=== PATIENT | male | born 1955 | race Caucasian/White ===

== ENCOUNTER 2016-04-15 16:48 | Inpatient (IN) | payer BC, OTHER ==
[~2016-04-15] VITALS: Ht 185.4 cm; Wt 151.8 kg
[~2016-04-15 16:48] MED LIST: CARI-277 PO; CLOP75TA28 PO; GABA300C PO; SIMV40TA96 PO
[2016-04-15 17:53] LABS: Basophils # (auto) 0 uL; Basophils % (auto) 0.3 % (0.0-2.0); Eosinophils # (auto) 0.1 uL; Hematocrit 46.8 % (41.0-53.0); Hemoglobin 15.2 g/dL (13.5-17.5); Lymphocytes # (auto) 1.3 uL; Lymphocytes % (auto) 10.8 % (10.0-50.0); Mean Corpuscular Hemoglobin 30.1 pg (28.0-32.0); Mean Corpuscular Hgb Conc. 32.5 g/dL (32.0-36.0); Mean Corpuscular Volume 92.5 fL (80.0-100.0); Monocytes # (auto) 0.5 uL; Monocytes % (auto) 3.9 % (0.0-12.0); Platelet Count (auto) 255 10^3/uL (140-450); Red Cell Distribution Width 14.9 % (11.6-16.0); White Blood Cell 11.9 10^3/uL (4.4-10.8)
[2016-04-15 17:59] LABS: Albumin 3.7 g/dL (3.4-5.0); BUN/Creatinine Ratio 29.7; Bilirubin, Total 1.5 mg/dL (0.2-1.0); Calcium 8.6 mg/dL (8.5-10.1); Magnesium 2.4 mg/dL (1.6-2.6); Potassium 3.9 mmol/L (3.5-5.1); Total Protein 7.2 g/dL (6.4-8.2)
[2016-04-15 18:05] LABS: B-Type Natriuretic Peptide 32.12 pg/mL (0-100)
[2016-04-15 18:07] LABS: Temperature: 22.3 C (20.0-25.0)
[2016-04-15 18:37] LABS: Partial Thromboplastin Time 43.9 sec (22.64-33.71)
[2016-04-15 18:38] LABS: INR 3.51 (0.9-1.15); Prothrombin Time 36.2 sec (9.37-12.3)
[2016-04-15] MEDS ORDERED: OXYCODONE W/ ACETAMINOPHEN 5/325MG TABLET PO ONE ×2 (18:45→19:00)
[2016-04-15] MEDS ORDERED: ONDANSETRON HCL 4 MG/2 ML VIAL IV ONE (19:00)
[2016-04-15] MEDS ORDERED: PANTOPRAZOLE SODIUM 40 MG/10 ML VIAL IV ONE (19:00)
[2016-04-15] MEDS ORDERED: IOHEXOL 350 MG/ML 100ML IJ ONE (20:34)
[2016-04-15] MEDS ORDERED: SODIUM CHLORIDE 0.9% 500 ML IV ONE (22:45)
[2016-04-15] MEDS ORDERED: SODIUM CHLORIDE 0.9% 1,000 ML IV ONE (23:00)
[2016-04-15] MEDS ORDERED: SOD CHL 0.45% 1,000 ML IV SCH (23:45)
[2016-04-15] MEDS ORDERED: ONDANSETRON HCL 4 MG/2 ML VIAL IV PRN (23:45)
[2016-04-15] MEDS ORDERED: NITROGLYCERIN 0.4 MG SL TAB SL PRN (23:45)
[2016-04-16] MEDS ORDERED: oxyCODONE ER 10 MG TAB PO PRN (01:15)
[2016-04-16] MEDS ORDERED: SODIUM CHLORIDE 0.9% 1,000 ML IV ONE (01:30)
[2016-04-16] MEDS ORDERED: NOREPINEPHRINE BITARTRATE 250 ML IV ONE (02:14)
[2016-04-16] MEDS: NOREPINEPHRINE BITARTRATE 250 ML IV SCH (02:31)
[2016-04-16 04:12] LABS: Basophils # (auto) 0 uL; Basophils % (auto) 0.2 % (0.0-2.0); Eosinophils # (auto) 0 uL; Eosinophils % (auto) 0.1 % (0.0-7.0); Hematocrit 40.3 % (41.0-53.0); Hemoglobin 13.1 g/dL (13.5-17.5); Lymphocytes # (auto) 1.1 uL; Lymphocytes % (auto) 5.8 % (10.0-50.0); Mean Corpuscular Hemoglobin 29.9 pg (28.0-32.0); Mean Corpuscular Hgb Conc. 32.5 g/dL (32.0-36.0); Mean Corpuscular Volume 92.2 fL (80.0-100.0); Mean Platelet Volume 7.9 fL (7.4-10.4); Monocytes # (auto) 1.1 uL; Monocytes % (auto) 5.7 % (0.0-12.0); Neutrophils # (auto) 16.8 uL; Neutrophils % (auto) 88.2 % (37.0-80.0); Platelet Count (auto) 219 10^3/uL (140-450); Red Cell Distribution Width 14.8 % (11.6-16.0)
[2016-04-16 04:34] LABS: BUN/Creatinine Ratio 20.3; Bilirubin, Total 2.5 mg/dL (0.2-1.0); Calcium 7.7 mg/dL (8.5-10.1); Potassium 4.2 mmol/L (3.5-5.1); Total Protein 5.9 g/dL (6.4-8.2)
[2016-04-16 04:38] LABS: Urine Blood Negative /uL (Negative); Urine Glucose Normal (Normal); Urine Granular Cast FEW /lpf (0); Urine Ketone Negative (Negative); Urine Nitrite Negative (Negative); Urine RBC 2 /hpf (0 - 3); Urine Squamous Epithelial Cell FEW /hpf (<5); Urine Urobilinogen >12.0 mg/dL (Negative); Urine pH 5.5 (5.0-8.0)
[2016-04-16 04:53] LABS: Urine Bilirubin 1+ (Negative); Urine Color Amber (Yellow)
[2016-04-16] MEDS ORDERED: fentaNYL CITRATE 100 MCG/2 ML VL IV PRN (07:00)
[2016-04-16 07:01] LABS: REFLEX LACTIC ACID YES OR NO YES
[2016-04-16] MEDS: PIPERACILLIN-TAZOB 3.375GM 100 ML IV SCH ×3 (08:05→18:57)
[2016-04-16 09:44] LABS: Prothrombin Time 43.1 sec (9.37-12.3)
[2016-04-16 09:49] LABS: INR 4.18 (0.9-1.15)
[2016-04-16] MEDS ORDERED: CARISOPRODOL 350 MG TAB PO SCH (10:00)
[2016-04-16] MEDS ORDERED: CLOPIDOGREL BISULFATE 75 MG TAB PO SCH (10:00)
[2016-04-16] MEDS ORDERED: GABAPENTIN 300 MG CAP PO SCH (10:00)
[2016-04-16 10:12] LABS: REFLEX LACTIC ACID YES OR NO YES
[2016-04-16] MEDS ORDERED: SODIUM CHLORIDE 0.9% 2,000 ML IV ONE (16:15)
[2016-04-16 20:45] VITALS: BP 102/65
[2016-04-16 22:00] VITALS: BP 102/65
[2016-04-16] MEDS ORDERED: TEMA15CA PO (22:53)
[2016-04-16] MEDS ORDERED: CHLO25TA22 PO (22:53)
[2016-04-16] MEDS ORDERED: WARF10TA20 PO (22:53)
[2016-04-16] MEDS ORDERED: ALL300T PO (22:53)
[2016-04-16] MEDS ORDERED: PRAV20TA3 PO (22:53)
[2016-04-16] MEDS ORDERED: LISI40TA PO (22:53)
[2016-04-16] MEDS ORDERED: BACL10TA PO (22:53)
[2016-04-16] MEDS: SOD CHL 0.45% 1,000 ML IV SCH ×2 (23:26→23:45)
[2016-04-17] MEDS: MORPHINE SULF INJ 2 MG/ML SYRINGE 1ML IV PRN ×6 (00:05→21:42)
[2016-04-17] MEDS: PIPERACILLIN-TAZOB 3.375GM 100 ML IV SCH ×4 (01:22→17:01)
[2016-04-17] MEDS: NOREPINEPHRINE BITARTRATE 250 ML IV SCH (02:30)
[2016-04-17] MEDS: SOD CHL 0.45% 1,000 ML IV SCH ×6 (02:33→23:49)
[2016-04-17 05:30] VITALS: BP 101/52
[2016-04-17 06:47] LABS: Basophils # (auto) 0 uL; Basophils % (auto) 0.1 % (0.0-2.0); Eosinophils # (auto) 0.2 uL; Eosinophils % (auto) 2.2 % (0.0-7.0); Hematocrit 37.7 % (41.0-53.0); Hemoglobin 12.2 g/dL (13.5-17.5); Lymphocytes # (auto) 0.9 uL; Lymphocytes % (auto) 10.2 % (10.0-50.0); Mean Corpuscular Hemoglobin 29.8 pg (28.0-32.0); Mean Corpuscular Hgb Conc. 32.3 g/dL (32.0-36.0); Mean Corpuscular Volume 92.3 fL (80.0-100.0); Mean Platelet Volume 8.1 fL (7.4-10.4); Monocytes # (auto) 0.4 uL; Monocytes % (auto) 4.8 % (0.0-12.0); Neutrophils # (auto) 7.3 uL; Neutrophils % (auto) 82.7 % (37.0-80.0); Platelet Count (auto) 169 10^3/uL (140-450); Red Cell Distribution Width 15.2 % (11.6-16.0); White Blood Cell 8.8 10^3/uL (4.4-10.8)
[2016-04-17 07:02] LABS: Partial Thromboplastin Time 49.3 sec (22.64-33.71)
[2016-04-17 07:03] LABS: INR 3.34 (0.9-1.15); Prothrombin Time 34.4 sec (9.37-12.3)
[2016-04-17 07:13] LABS: Albumin 2.8 g/dL (3.4-5.0); BUN/Creatinine Ratio 24.2; Bilirubin, Total 2.1 mg/dL (0.2-1.0); Calcium 7.9 mg/dL (8.5-10.1); Potassium 3.8 mmol/L (3.5-5.1); Total Protein 5.8 g/dL (6.4-8.2)
[2016-04-17 08:25] VITALS: BP 93/54
[2016-04-17 11:46] VITALS: BP 121/66
[2016-04-17 17:11] VITALS: BP 118/65
[2016-04-17 22:00] VITALS: BP 129/87
[2016-04-18] MEDS: PIPERACILLIN-TAZOB 3.375GM 100 ML IV SCH ×3 (00:54→12:20)
[2016-04-18] MEDS: MORPHINE SULF INJ 2 MG/ML SYRINGE 1ML IV PRN ×2 (02:00→06:07)
[2016-04-18 05:30] VITALS: BP 149/82
[2016-04-18 06:18] LABS: Basophils # (auto) 0 uL; Basophils % (auto) 0.3 % (0.0-2.0); Eosinophils # (auto) 0.3 uL; Eosinophils % (auto) 4.2 % (0.0-7.0); Hematocrit 39.1 % (41.0-53.0); Hemoglobin 12.8 g/dL (13.5-17.5); Lymphocytes # (auto) 1.4 uL; Lymphocytes % (auto) 20.6 % (10.0-50.0); Mean Corpuscular Hemoglobin 30.1 pg (28.0-32.0); Mean Corpuscular Hgb Conc. 32.7 g/dL (32.0-36.0); Mean Corpuscular Volume 91.9 fL (80.0-100.0); Mean Platelet Volume 7.9 fL (7.4-10.4); Monocytes # (auto) 0.4 uL; Monocytes % (auto) 6.6 % (0.0-12.0); Neutrophils # (auto) 4.6 uL; Neutrophils % (auto) 68.3 % (37.0-80.0); Platelet Count (auto) 183 10^3/uL (140-450); Red Cell Distribution Width 14.7 % (11.6-16.0); White Blood Cell 6.8 10^3/uL (4.4-10.8)
[2016-04-18 06:37] LABS: Albumin 2.8 g/dL (3.4-5.0); BUN/Creatinine Ratio 14.4; Calcium 7.9 mg/dL (8.5-10.1)
[2016-04-18 06:39] LABS: Bilirubin, Total 1.1 mg/dL (0.2-1.0); Total Protein 6.3 g/dL (6.4-8.2)
[2016-04-18 06:40] LABS: Partial Thromboplastin Time 50.4 sec (22.64-33.71)
[2016-04-18 06:42] LABS: INR 2.88 (0.9-1.15); Prothrombin Time 29.7 sec (9.37-12.3)
[2016-04-18] MEDS: SOD CHL 0.45% 1,000 ML IV SCH (07:45)
[2016-04-18] MEDS ORDERED: BACLOFEN 10 MG TAB PO PRN (09:15)
[2016-04-18 09:27] VITALS: BP 131/82
[2016-04-18] MEDS ORDERED: fentaNYL 75MCG/HR 75 MCG/HR PAT TD SCH (09:30)
[2016-04-18] MEDS ORDERED: ALLOPURINOL 300 MG TAB PO SCH (10:00)
[2016-04-18] MEDS ORDERED: CHLORTHALIDONE 25 MG PO SCH (10:00)
[2016-04-18] MEDS ORDERED: PRAVASTATIN SODIUM 20 MG TAB PO SCH (10:00)
[2016-04-18] MEDS ORDERED: PATIENTS OWN MEDICATION TD ONE ×2 (10:00)
[2016-04-18] MEDS ORDERED: CITALOPRAM HYDROBR 20 MG TAB PO ONE (10:30)
[2016-04-18 12:38] VITALS: BP 137/88
[2016-04-18 16:35] VITALS: BP 113/79
[2016-04-18] MEDS ORDERED: WARFARIN SODIUM 2 MG TAB PO ONE (17:00)
[2016-04-18 17:20] VITALS: BP 113/79
[2016-04-18] MEDS ORDERED: TEMAZEPAM 15 MG CAP PO SCH (22:00)
== END 2016-04-18 17:20 | disposition home or self-care (01) | DRG 439 ==
LOC: EDUNIT# 16:48 → ER 16:54 → TELE 16:55 → TELE-WESTW 04-16 20:30
PROVIDERS: ADMIT Internal Medicine; ATTEND Internal Medicine
DX: K85.90 Acute pancreatitis without necrosis or infection, unspecified (principal); Z68.41 Body mass index [BMI] 40.0-44.9, adult; F11.20 Opioid dependence, uncomplicated; N17.9 Acute kidney failure, unspecified; G89.29 Other chronic pain; M54.9 Dorsalgia, unspecified; I95.9 Hypotension, unspecified; E66.01 Morbid (severe) obesity due to excess calories; M10.9 Gout, unspecified; E03.9 Hypothyroidism, unspecified; I10 Essential (primary) hypertension; K21.9 Gastro-esophageal reflux disease without esophagitis; R79.89 Other specified abnormal findings of blood chemistry; I48.2 Chronic atrial fibrillation; M16.0 Bilateral primary osteoarthritis of hip; E86.0 Dehydration; I25.10 Atherosclerotic heart disease of native coronary artery without angina pectoris; Z79.01 Long term (current) use of anticoagulants; I25.2 Old myocardial infarction; Z98.84 Bariatric surgery status; Z88.1 Allergy status to other antibiotic agents; Z88.8 Allergy status to other drugs, medicaments and biological substances; Z79.899 Other long term (current) drug therapy; Z90.49 Acquired absence of other specified parts of digestive tract; Z80.0 Family history of malignant neoplasm of digestive organs
CPT/HCPCS: 36415; 36600; 71010; 71260; 74177; 76705; 80053; 80061; 80074; 81001; 82805; 83605; 83690; 83735; 83880; 84478; 84484; 85025; 85379; 85610; 85730; 86038; 86141; 87040; 93005; 94761; 96361; 96374; C9113; J2405; J2543; J3490

== ENCOUNTER 2016-09-17 04:10 | Emergency (ER) | payer BC ==
[~2016-09-17] VITALS: Ht 185.4 cm; Wt 145.1 kg
[~2016-09-17 04:10] MED LIST changes: +ALL300T PO; +BACL10TA PO; +CHLO25TA22 PO; +LISI40TA PO; +PRAV20TA3 PO; +TEMA15CA PO; +WARF10TA20 PO
[2016-09-17 04:37] LABS: Basophils # (auto) 0 uL; Basophils % (auto) 0.7 % (0.0-2.0); Eosinophils # (auto) 0.2 uL; Eosinophils % (auto) 3.5 % (0.0-7.0); Hemoglobin 13.6 g/dL (13.5-17.5); Lymphocytes # (auto) 2.3 uL; Lymphocytes % (auto) 34.2 % (10.0-50.0); Mean Corpuscular Hgb Conc. 33.3 g/dL (32.0-36.0); Mean Corpuscular Volume 93.1 fL (80.0-100.0); Mean Platelet Volume 7.3 fL (7.4-10.4); Monocytes # (auto) 0.4 uL; Monocytes % (auto) 6.5 % (0.0-12.0); Neutrophils # (auto) 3.7 uL; Neutrophils % (auto) 55.1 % (37.0-80.0); Platelet Count (auto) 263 10^3/uL (140-450); Red Cell Distribution Width 14.8 % (11.6-16.0); White Blood Cell 6.7 10^3/uL (4.4-10.8)
[2016-09-17] MEDS: SODIUM CHLORIDE 0.9% 1,000 ML IVB ONE (04:45)
[2016-09-17 04:55] LABS: Partial Thromboplastin Time 38.5 sec (22.64-33.71)
[2016-09-17 05:03] LABS: Albumin 3.1 g/dL (3.4-5.0); Alkaline Phosphatase 82 U/L (45-117); Anion Gap 6 (5-15); Aspartate Aminotransferase 28 U/L (15-37); BUN/Creatinine Ratio 25.3; Bilirubin, Total 0.3 mg/dL (0.2-1.0); Blood Urea Nitrogen 24 mg/dL (7-18); Calcium 7.8 mg/dL (8.5-10.1); Carbon Dioxide 27 mmol/L (21-32); Chloride 107 mmol/L (98-107); GFR African American 104 mL/min; GFR Non-African American 86 mL/min; Glucose 122 mg/dL (74-106); INR 2.42 (0.9-1.15); Magnesium 2.3 mg/dL (1.6-2.6); Potassium 4.2 mmol/L (3.5-5.1); Prothrombin Time 26.6 sec (9.37-12.3); Sodium 140 mmol/L (136-145); Total Protein 6.6 g/dL (6.4-8.2)
[2016-09-17 05:06] LABS: B-Type Natriuretic Peptide 50.27 pg/mL (0-100)
[2016-09-17 05:07] LABS: Temperature: 22.3 C (20.0-25.0)
[2016-09-17] MEDS: MECLIZINE HCL 25 MG TAB PO ONE ×2 (05:30→08:26)
[2016-09-17] MEDS ORDERED: FENT25DI2 TD (07:51)
[2016-09-17] MEDS ORDERED: ALL100T PO (07:51)
[2016-09-17] MEDS ORDERED: [UNRECOGNIZED DRUG - OTHER] (07:58)
[2016-09-17] MEDS ORDERED: OXY10CRT PO (07:58)
[2016-09-17 09:55] VITALS: BP 120/75
== END 2016-09-17 10:24 | disposition home or self-care (01) ==
LOC: ER 04:10 → EDBD 04:10 → ER 10:24
DX: R07.9 Chest pain, unspecified (principal); I48.91 Unspecified atrial fibrillation; I25.10 Atherosclerotic heart disease of native coronary artery without angina pectoris; M10.9 Gout, unspecified; I10 Essential (primary) hypertension; I25.2 Old myocardial infarction; E07.9 Disorder of thyroid, unspecified; Z90.49 Acquired absence of other specified parts of digestive tract; R42 Dizziness and giddiness; R11.2 Nausea with vomiting, unspecified; R00.2 Palpitations; Z88.8 Allergy status to other drugs, medicaments and biological substances; Z79.899 Other long term (current) drug therapy; Z79.01 Long term (current) use of anticoagulants
CPT/HCPCS: 36415; 70450; 71010; 80053; 83690; 83735; 83880; 84443; 84484; 85025; 85610; 85730; 93005; 94761; 96360; 99285; J7030; J8597

== ENCOUNTER 2020-11-11 19:09 | Observation (INO) | payer BC, MEDICARE ==
[~2020-11-11] VITALS: Ht 188 cm; Wt 137.3 kg
[~2020-11-11 19:09] MED LIST changes: -CARI-277 PO; +CHLO25TA2 PO; -CHLO25TA22 PO; -CLOP75TA28 PO; +FENT25DI2 TD; -GABA300C PO; -LISI40TA PO; +LISI40TA11 PO; +OXY10CRT PO; -PRAV20TA3 PO; +SIMV40TA2 PO; -SIMV40TA96 PO; +[UNRECOGNIZED DRUG - OTHER]
[2020-11-11 20:32] LABS: Basophils # (auto) 0 10 ^3/uL (0-0.2); Basophils % (auto) 0.4 % (0.0-2.0); Eosinophils # (auto) 0.1 10 ^3/uL (0-0.8); Eosinophils % (auto) 0.8 % (0.0-7.0); Hematocrit 41.8 % (41.0-53.0); Lymphocytes # (auto) 1.5 10 ^3/uL (0.4-5.4); Lymphocytes % (auto) 19.2 % (10.0-50.0); Mean Corpuscular Hemoglobin 29.8 pg (28.0-32.0); Mean Corpuscular Hgb Conc. 33.5 g/dL (32.0-36.0); Mean Corpuscular Volume 89.2 fL (80.0-100.0); Monocytes # (auto) 0.6 10 ^3/uL (0-1.3); Monocytes % (auto) 7.8 % (0.0-12.0); Neutrophils # (auto) 5.5 10 ^3/uL (1.6-8.6); Neutrophils % (auto) 71.8 % (37.0-80.0); Red Blood Cells 4.69 10^6/uL (4.5-5.90); Red Cell Distribution Width 16.5 % (11.8-14.3); White Blood Cell 7.6 10^3/uL (4.4-10.8)
[2020-11-11 20:48] LABS: Alanine Aminotransferase 29 U/L (16-61); Albumin 3.1 g/dL (3.4-5.0); Anion Gap 5 (5-15); Aspartate Aminotransferase 35 U/L (15-37); Blood Urea Nitrogen 20 mg/dL (7-18); Calcium 8.1 mg/dL (8.5-10.1); Carbon Dioxide 26 mmol/L (21-32); Chloride 107 mmol/L (98-107); Glucose 110 mg/dL (74-106); Magnesium 2.2 mg/dL (1.6-2.6); Potassium 4.3 mmol/L (3.5-5.1); Sodium 138 mmol/L (136-145)
[2020-11-11 20:53] LABS: Alkaline Phosphatase 100 U/L (45-117); Bilirubin, Total 0.5 mg/dL (0.2-1.0); GFR African American 91 mL/min; GFR Non-African American 75 mL/min; INR 1.75 (0.9-1.15); Partial Thromboplastin Time 35.5 sec (23.0-31.2); Total Protein 7.3 g/dL (6.4-8.2)
[2020-11-12] MEDS ORDERED: LORazepam 2MG/ML-1ML VIAL IV ONE (02:45)
[2020-11-12] MEDS ORDERED: levETIRAcetam 500 MG/5ML INJ IV ONE ×2 (03:10→20:28)
[2020-11-12] MEDS ORDERED: SODIUM CHLORIDE 0.9% 1,000 ML IV ONE (04:45)
[2020-11-12 08:51] LABS: Urine Bacteria NONE SEEN /hpf (None Seen); Urine Blood Negative /uL (Negative); Urine Specific Gravity 1.015 (1.001-1.035); Urine WBC 1 /hpf (0 - 3)
[2020-11-12] MEDS ORDERED: LORazepam 2MG/ML-1ML VIAL IV PRN ×2 (09:15→21:00)
[2020-11-12 09:33] LABS: Alcohol, Urine < 3.0 mg/dL (0-10); Amphetamine Screen, Urine NEGATIVE (NEGATIVE); Barbiturate Scree,Urine NEGATIVE (NEGATIVE); Benzodiazephine Screen, Urine POSITIVE (NEGATIVE); Cannabinoid Screen, Urine NEGATIVE (NEGATIVE); Cocaine Screen, Urine NEGATIVE (NEGATIVE); Opiate Scree,Urine NEGATIVE (NEGATIVE); Phencyclidine Screen, Urine NEGATIVE (NEGATIVE)
[2020-11-12] MEDS: ALLOPURINOL 300 MG TAB PO SCH (11:11)
[2020-11-12] MEDS ORDERED: DEXTROSE (50%) 50ML SYRG IV PRN (12:30)
[2020-11-12] MEDS ORDERED: DILT-29 PO (12:30)
[2020-11-12] MEDS ORDERED: MORPHINE SULF INJ 2 MG/ML SYRINGE 1ML IV PRN (12:30)
[2020-11-12] MEDS ORDERED: CITA-77 PO (12:30)
[2020-11-12] MEDS ORDERED: NITROGLYCERIN 0.4 MG SL TAB SL PRN (12:30)
[2020-11-12] MEDS ORDERED: TEMAZEPAM 15 MG CAP PO PRN (12:30)
[2020-11-12] MEDS ORDERED: ACETAMINOPHEN 325 MG TAB PO PRN (12:30)
[2020-11-12] MEDS ORDERED: LEVO137T3 PO (12:30)
[2020-11-12] MEDS ORDERED: fentaNYL 25MCG/HR 25 MCG/HR PAT TD SCH (15:30)
[2020-11-12] MEDS: oxyCODONE ER 10 MG TAB PO PRN (16:15)
[2020-11-12] MEDS: InsuLIN REG 1unit/0.01ml Soln (100units/ml) SC SCH ×2 (17:00→22:00)
[2020-11-12] MEDS: ACCU-CHEK COMFORT CURVE STRIP VI SCH ×2 (17:00→22:48)
[2020-11-12] MEDS ORDERED: WARFARIN SODIUM 10 MG TAB PO ONE (17:00)
[2020-11-12 21:44] VITALS: BP 132/99
[2020-11-12 22:00] VITALS: BP 132/87
[2020-11-12] MEDS ORDERED: ATORVASTATIN 20 MG TAB PO SCH (22:00)
[2020-11-13] MEDS: oxyCODONE ER 10 MG TAB PO PRN (04:15)
[2020-11-13 05:00] VITALS: BP 132/99
[2020-11-13 05:16] LABS: Basophils # (auto) 0 10 ^3/uL (0-0.2); Basophils % (auto) 0.6 % (0.0-2.0); Eosinophils # (auto) 0.1 10 ^3/uL (0-0.8); Eosinophils % (auto) 1.8 % (0.0-7.0); Hemoglobin 13.4 g/dL (13.5-17.5); Lymphocytes # (auto) 2.2 10 ^3/uL (0.4-5.4); Lymphocytes % (auto) 33.2 % (10.0-50.0); Mean Corpuscular Hemoglobin 29.8 pg (28.0-32.0); Mean Corpuscular Hgb Conc. 33.6 g/dL (32.0-36.0); Mean Corpuscular Volume 88.9 fL (80.0-100.0); Monocytes # (auto) 0.5 10 ^3/uL (0-1.3); Monocytes % (auto) 8.1 % (0.0-12.0); Neutrophils # (auto) 3.8 10 ^3/uL (1.6-8.6); Neutrophils % (auto) 56.3 % (37.0-80.0); Nucleated Red Blood Cells % 0.1 %; Red Cell Distribution Width 16.1 % (11.8-14.3); White Blood Cell 6.7 10^3/uL (4.4-10.8)
[2020-11-13 05:33] LABS: INR 1.32 (0.9-1.15); Partial Thromboplastin Time 32.2 sec (23.0-31.2)
[2020-11-13 05:39] LABS: Potassium 4.2 mmol/L (3.5-5.1)
[2020-11-13 05:43] LABS: Albumin 3.2 g/dL (3.4-5.0); BUN/Creatinine Ratio 18.3
[2020-11-13 05:46] LABS: Bilirubin, Total 0.6 mg/dL (0.2-1.0); Total Protein 6.8 g/dL (6.4-8.2)
[2020-11-13] MEDS: InsuLIN REG 1unit/0.01ml Soln (100units/ml) SC SCH ×2 (07:00→11:30)
[2020-11-13] MEDS: ACCU-CHEK COMFORT CURVE STRIP VI SCH ×2 (07:56→11:52)
[2020-11-13 09:00] VITALS: BP 155/85
[2020-11-13] MEDS ORDERED: KEP500T PO (09:53)
[2020-11-13] MEDS: ALLOPURINOL 300 MG TAB PO SCH (09:55)
[2020-11-13] MEDS ORDERED: BACLOFEN 10 MG TAB PO PRN (10:15)
[2020-11-13] MEDS ORDERED: fentaNYL 25MCG/HR 25 MCG/HR PAT TD SCH (10:15)
[2020-11-13 13:00] VITALS: BP 132/76
[2020-11-13] MEDS ORDERED: WARFARIN SODIUM 10 MG TAB PO ONE (17:00)
[2020-11-13] MEDS ORDERED: LISINOPRIL 20 MG TAB PO SCH (22:00)
[2020-11-13] MEDS ORDERED: levETIRAcetam 500 MG TAB PO SCH (22:00)
[2020-11-14] MEDS ORDERED: LEVOTHYROXINE SODIUM 25 MCG TAB PO SCH (07:00)
[2020-11-14] MEDS ORDERED: LEVOTHYROXINE SODIUM 112 MCG TAB PO SCH (07:00)
[2020-11-14] MEDS ORDERED: CITALOPRAM HYDROBR 20 MG TAB PO SCH (10:00)
[2020-11-14] MEDS ORDERED: Chlorthalidone 25 MG TAB PO SCH (10:00)
[2020-11-14] MEDS ORDERED: dilTIAZem 120MG ER CAP PO SCH (10:00)
== END 2020-11-13 16:40 | disposition home health service (06) ==
LOC: EDBD 19:09 → ER 19:13 → TELE 11-12 12:25 → TELE-WESTW 11-12 21:44
PROVIDERS: ADMIT Hospitalist; ATTEND Hospitalist
DX: G40.209 Localization-related (focal) (partial) symptomatic epilepsy and epileptic syndromes with complex partial seizures, not intractable, without status epilepticus (principal); Z20.822 Contact with and (suspected) exposure to COVID-19; R41.82 Altered mental status, unspecified; G40.409 Other generalized epilepsy and epileptic syndromes, not intractable, without status epilepticus; E03.9 Hypothyroidism, unspecified; E11.9 Type 2 diabetes mellitus without complications; I10 Essential (primary) hypertension; I48.20 Chronic atrial fibrillation, unspecified; I25.10 Atherosclerotic heart disease of native coronary artery without angina pectoris; G70.00 Myasthenia gravis without (acute) exacerbation; D84.9 Immunodeficiency, unspecified; I25.2 Old myocardial infarction; Z96.659 Presence of unspecified artificial knee joint; Z79.899 Other long term (current) drug therapy; Z86.73 Personal history of transient ischemic attack (TIA), and cerebral infarction without residual deficits; Z91.14 Patient's other noncompliance with medication regimen; Z98.84 Bariatric surgery status
CPT/HCPCS: 36415; 70450; 70551; 71045; 80053; 80307; 81001; 82542; 82962; 83735; 83880; 84484; 85025; 85610; 85730; 87426; 93005; 95819; 96365; 96366; 96375; 99285; G0378; J1953; J2060; J7060; 96367

== ENCOUNTER 2021-04-27 12:27 | Inpatient (IN) | payer BC, MEDICARE ==
[~2021-04-27] VITALS: Ht 188 cm; Wt 154.2 kg
[~2021-04-27 12:27] MED LIST changes: +CITA-77 PO; +DILT-29 PO; +KEP500T PO; +LEVO137T3 PO; -[UNRECOGNIZED DRUG - OTHER]
[2021-04-27] MEDS ORDERED: ATROPINE SULFATE 1 MG/1 ML VIAL ONE (13:05)
[2021-04-27] MEDS ORDERED: ATROPINE SULF 1 MG/10ml SYR IV ONE (13:05)
[2021-04-27] MEDS ORDERED: DOPamine 1600MCG/ML D5W 250 ML IV ONE ×5 (13:05→22:17)
[2021-04-27 14:26] LABS: Basophils # (auto) 0 10 ^3/uL (0-0.2); Basophils % (auto) 0.3 % (0.0-2.0); Eosinophils # (auto) 0 10 ^3/uL (0-0.8); Eosinophils % (auto) 0.2 % (0.0-7.0); Hematocrit 43.1 % (41.0-53.0); Hemoglobin 14.4 g/dL (13.5-17.5); Lymphocytes # (auto) 1.4 10 ^3/uL (0.4-5.4); Lymphocytes % (auto) 19.6 % (10.0-50.0); Mean Corpuscular Hemoglobin 30.2 pg (28.0-32.0); Mean Corpuscular Hgb Conc. 33.4 g/dL (32.0-36.0); Mean Corpuscular Volume 90.5 fL (80.0-100.0); Monocytes # (auto) 0.3 10 ^3/uL (0-1.3); Monocytes % (auto) 3.8 % (0.0-12.0); Neutrophils # (auto) 5.6 10 ^3/uL (1.6-8.6); Neutrophils % (auto) 76.1 % (37.0-80.0); Red Blood Cells 4.76 10^6/uL (4.5-5.90); Red Cell Distribution Width 16.7 % (11.8-14.3); White Blood Cell 7.3 10^3/uL (4.4-10.8)
[2021-04-27 14:51] LABS: Albumin 3.9 g/dL (3.4-5.0); Calcium 7.9 mg/dL (8.5-10.1); Potassium 5.1 mmol/L (3.5-5.1)
[2021-04-27 15:04] LABS: BUN/Creatinine Ratio 27.6; Bilirubin, Total 0.4 mg/dL (0.2-1.0)
[2021-04-27] MEDS: NOREPINEPHRINE 8 MG/250ML KIT 250 ML IV SCH (16:37)
[2021-04-27] MEDS ORDERED: NOREPINEPHRINE 8 MG/250ML KIT 250 ML IV SCH (16:37)
[2021-04-27] MEDS ORDERED: NOREPINEPHRINE 8 MG/250ML KIT 250 ML IV ONE (16:37)
[2021-04-27] MEDS ORDERED: LORazepam 2MG/ML-1ML VIAL IV PRN (19:00)
[2021-04-27] MEDS: SODIUM CHLORIDE 0.9% 1,000 ML IV SCH (23:06)
[2021-04-27 23:42] LABS: Amphetamine Screen, Urine NEGATIVE (NEGATIVE); Barbiturate Scree,Urine NEGATIVE (NEGATIVE); Benzodiazephine Screen, Urine POSITIVE (NEGATIVE); Cannabinoid Screen, Urine NEGATIVE (NEGATIVE); Cocaine Screen, Urine NEGATIVE (NEGATIVE); Opiate Scree,Urine POSITIVE (NEGATIVE); Phencyclidine Screen, Urine NEGATIVE (NEGATIVE)
[2021-04-28 00:18] LABS: INR 2.26 (0.9-1.15)
[2021-04-28] MEDS: SODIUM CHLORIDE 0.9% 1,000 ML IV SCH ×4 (07:30→23:40)
[2021-04-28] MEDS: DOPamine 1600MCG/ML D5W 250 ML IV SCH ×3 (07:30→16:32)
[2021-04-28 07:47] LABS: Basophils # (auto) 0.1 10 ^3/uL (0-0.2); Basophils % (auto) 0.7 % (0.0-2.0); Eosinophils # (auto) 0 10 ^3/uL (0-0.8); Eosinophils % (auto) 0.2 % (0.0-7.0); Hemoglobin 13.8 g/dL (13.5-17.5); Lymphocytes # (auto) 2.1 10 ^3/uL (0.4-5.4); Lymphocytes % (auto) 21.9 % (10.0-50.0); Mean Corpuscular Hemoglobin 30.1 pg (28.0-32.0); Mean Corpuscular Hgb Conc. 33.5 g/dL (32.0-36.0); Mean Corpuscular Volume 89.6 fL (80.0-100.0); Monocytes # (auto) 0.9 10 ^3/uL (0-1.3); Monocytes % (auto) 9.8 % (0.0-12.0); Neutrophils # (auto) 6.4 10 ^3/uL (1.6-8.6); Neutrophils % (auto) 67.4 % (37.0-80.0); Red Blood Cells 4.58 10^6/uL (4.5-5.90); Red Cell Distribution Width 16.7 % (11.8-14.3); White Blood Cell 9.5 10^3/uL (4.4-10.8)
[2021-04-28 08:09] LABS: BUN/Creatinine Ratio 32.3; Calcium 7.4 mg/dL (8.5-10.1); Potassium 4.3 mmol/L (3.5-5.1)
[2021-04-28] MEDS: NOREPINEPHRINE 8 MG/250ML KIT 250 ML IV SCH (13:00)
[2021-04-28] MEDS: HYDROcodone-ACET 5/325MG TAB PO PRN (23:23)
[2021-04-29] MEDS: DOPamine 1600MCG/ML D5W 250 ML IV SCH ×4 (01:16→22:25)
[2021-04-29] MEDS: SODIUM CHLORIDE 0.9% 1,000 ML IV SCH ×3 (04:31→17:40)
[2021-04-29] MEDS ORDERED: levETIRAcetam 500 MG/5ML INJ IV ONE (10:56)
[2021-04-29 11:04] LABS: Calcium 7.6 mg/dL (8.5-10.1); Potassium 4.8 mmol/L (3.5-5.1)
[2021-04-29 11:10] LABS: BUN/Creatinine Ratio 24.8; Bilirubin, Total 0.6 mg/dL (0.2-1.0); Total Protein 6.7 g/dL (6.4-8.2)
[2021-04-29] MEDS: NOREPINEPHRINE 8 MG/250ML KIT 250 ML IV SCH (13:17)
[2021-04-29] MEDS: HYDROcodone-ACET 5/325MG TAB PO PRN (14:45)
[2021-04-29] MEDS ORDERED: ZOLPIDEM TARTRATE 5 MG TAB PO ONE ×2 (16:00→20:00)
[2021-04-29 21:20] LABS: Basophils # (auto) 0 10 ^3/uL (0-0.2); Basophils % (auto) 0.5 % (0.0-2.0); Eosinophils # (auto) 0.1 10 ^3/uL (0-0.8); Eosinophils % (auto) 0.9 % (0.0-7.0); Hematocrit 45.1 % (41.0-53.0); Hemoglobin 14.8 g/dL (13.5-17.5); Lymphocytes # (auto) 1.6 10 ^3/uL (0.4-5.4); Lymphocytes % (auto) 25.4 % (10.0-50.0); Mean Corpuscular Hemoglobin 29.9 pg (28.0-32.0); Mean Corpuscular Hgb Conc. 32.9 g/dL (32.0-36.0); Mean Corpuscular Volume 90.9 fL (80.0-100.0); Monocytes # (auto) 0.6 10 ^3/uL (0-1.3); Monocytes % (auto) 8.9 % (0.0-12.0); Neutrophils # (auto) 4.1 10 ^3/uL (1.6-8.6); Neutrophils % (auto) 64.3 % (37.0-80.0); Nucleated Red Blood Cells % 0.1 %; Red Blood Cells 4.96 10^6/uL (4.5-5.90); White Blood Cell 6.4 10^3/uL (4.4-10.8)
[2021-04-30] MEDS: HYDROcodone-ACET 5/325MG TAB PO PRN ×3 (00:17→20:59)
[2021-04-30] MEDS: SODIUM CHLORIDE 0.9% 1,000 ML IV SCH ×4 (00:44→20:20)
[2021-04-30 05:28] LABS: Potassium 4.8 mmol/L (3.5-5.1)
[2021-04-30 05:40] LABS: BUN/Creatinine Ratio 27.8; Bilirubin, Total 0.6 mg/dL (0.2-1.0); Calcium 7.8 mg/dL (8.5-10.1); Total Protein 6.4 g/dL (6.4-8.2)
[2021-04-30 06:27] LABS: CRP High Sensitivity 2.71 mg/dL (< 0.3)
[2021-04-30] MEDS ORDERED: levETIRAcetam 500 MG TAB PO SCH (10:00)
[2021-04-30 10:49] LABS: Basophils # (auto) 0 10 ^3/uL (0-0.2); Basophils % (auto) 0.4 % (0.0-2.0); Eosinophils # (auto) 0.1 10 ^3/uL (0-0.8); Eosinophils % (auto) 2.1 % (0.0-7.0); Hematocrit 42.6 % (41.0-53.0); Hemoglobin 14.1 g/dL (13.5-17.5); Lymphocytes # (auto) 1.6 10 ^3/uL (0.4-5.4); Lymphocytes % (auto) 25.3 % (10.0-50.0); Mean Corpuscular Hemoglobin 29.7 pg (28.0-32.0); Mean Corpuscular Hgb Conc. 33.2 g/dL (32.0-36.0); Mean Corpuscular Volume 89.7 fL (80.0-100.0); Monocytes # (auto) 0.5 10 ^3/uL (0-1.3); Monocytes % (auto) 8.4 % (0.0-12.0); Neutrophils % (auto) 63.8 % (37.0-80.0); Nucleated Red Blood Cells % 0.1 %; Red Blood Cells 4.75 10^6/uL (4.5-5.90); Red Cell Distribution Width 16.4 % (11.8-14.3); White Blood Cell 6.2 10^3/uL (4.4-10.8)
[2021-04-30] MEDS: DOPamine 1600MCG/ML D5W 250 ML IV SCH ×2 (15:02→20:03)
[2021-04-30] MEDS: NOREPINEPHRINE 8 MG/250ML KIT 250 ML IV SCH (17:13)
[2021-04-30 21:35] VITALS: BP 143/82
== END 2021-04-30 21:35 | disposition home health service (06) | DRG 315 ==
LOC: ER 12:27 → TELE 18:39
PROVIDERS: ADMIT Internal Medicine; ATTEND Internal Medicine
DX: I95.9 Hypotension, unspecified (principal); N17.9 Acute kidney failure, unspecified; Z68.41 Body mass index [BMI] 40.0-44.9, adult; F11.20 Opioid dependence, uncomplicated; R00.1 Bradycardia, unspecified; G40.401 Other generalized epilepsy and epileptic syndromes, not intractable, with status epilepticus; I48.91 Unspecified atrial fibrillation; I25.10 Atherosclerotic heart disease of native coronary artery without angina pectoris; F17.200 Nicotine dependence, unspecified, uncomplicated; I10 Essential (primary) hypertension; G62.9 Polyneuropathy, unspecified; M10.9 Gout, unspecified; E66.01 Morbid (severe) obesity due to excess calories; Z20.822 Contact with and (suspected) exposure to COVID-19; G89.29 Other chronic pain; Z80.9 Family history of malignant neoplasm, unspecified; Z98.84 Bariatric surgery status; Z90.49 Acquired absence of other specified parts of digestive tract; I25.2 Old myocardial infarction
CPT/HCPCS: 36415; 70450; 71045; 80048; 80053; 80307; 82533; 83605; 84443; 84484; 85025; 85610; 86141; 87426; 93005; 93306; 95819; 96365; 96375; G0378; J0461; J7060